=== PATIENT | female | born 1965 | race American Indian/Alaskan Native ===

== ENCOUNTER 2017-01-10 18:33 | Emergency (ER) | payer MEDICAID ==
[~2017-01-10] VITALS: Ht 149.9 cm; Wt 67.6 kg
[2017-01-10] MEDS ORDERED: KETOROLAC 30 MG/1 ML IM ONE (19:00)
[2017-01-10] MEDS ORDERED: KETOROLAC 30 MG/1 ML ONE (19:03)
[2017-01-10 19:35] VITALS: BP 163/117
== END 2017-01-10 20:14 | disposition home or self-care (01) ==
LOC: ED 20:10
DX: I10 Essential (primary) hypertension (principal); G89.11 Acute pain due to trauma; M25.512 Pain in left shoulder
CPT/HCPCS: 73030; 96372; 99284; J1885

== ENCOUNTER 2017-07-12 16:57 | Emergency (ER) | payer MEDICAID ==
[~2017-07-12] VITALS: Ht 149.9 cm; Wt 69.3 kg
[2017-07-12 17:07] VITALS: BP 193/121
[2017-07-12] MEDS ORDERED: AZITHROMYCIN 500 MG TABLET PO ONE (17:30)
[2017-07-12] MEDS ORDERED: CEFTRIAXONE 250 MG IM ONE (17:30)
[2017-07-12] MEDS ORDERED: AZITHROMYCIN 500 MG TABLET ONE (17:33)
[2017-07-12] MEDS ORDERED: CEFTRIAXONE 250 MG ONE (17:33)
[2017-07-12 19:05] LABS: CLUE CELLS NONE SEEN (NONE SEEN); WET PREP WBCS NONE SEEN (FEW)
== END 2017-07-12 18:53 | disposition home or self-care (01) ==
LOC: ED 18:30
DX: A64 Unspecified sexually transmitted disease (principal); I10 Essential (primary) hypertension
CPT/HCPCS: 87210; 87491; 87591; 87808; 96372; 99284; J0696

== ENCOUNTER 2018-12-10 10:09 | Inpatient (IN) | payer MEDICAID ==
[~2018-12-10] VITALS: Ht 149.9 cm; Wt 74.6 kg
[2018-12-10] MEDS ORDERED: LISI1TAB5 PO (10:46)
--- NOTE | 2018-12-10 10:47 | NUR ---
Pt presents to ED with c/o dizziness, nausea, and vomitting, intermittently for "two weeks". Pt is hypertensive in ED room with blood pressure at 206/122, heart rate in 80's. Pt states, "I forgot to take my blood pressure meds this morning." Pt connected to personnel monitor, NIBP cuff, and pulse ox. Both bedrails up for safety measures. Call light within reach. Family at bedside. NADN. No needs expressed. Pt denies cp, n/v at this time. Pt states, "I feel dizzy".
[2018-12-10] MEDS ORDERED: METOPROLOL 1 MG/ML, 5ML ONE (10:52)
[2018-12-10] MEDS ORDERED: METOPROLOL 1 MG/ML, 5ML IVPush ONE (11:30)
[2018-12-10] MEDS ORDERED: ONDANSETRON 2MG/ML, 2ML ONE (11:30)
[2018-12-10] MEDS ORDERED: MORPHINE SULFATE 4 MG/ML, 1ML ONE ×2 (11:30→12:19)
[2018-12-10] MEDS ORDERED: ONDANSETRON 2MG/ML, 2ML IVPush ONE (11:30)
[2018-12-10] MEDS: MORPHINE SULFATE 4 MG/ML, 1ML IVPush PRN ×2 (11:34→12:28)
[2018-12-10 11:41] LABS: BASOPHILS # (AUTO) 0.02 x10^3/uL (0-0.1); BASOPHILS % (AUTO) 0 % (0-1); EOSINOPHILS # (AUTO) 0.11 x10^3/uL (0-0.4); EOSINOPHILS % (AUTO) 2 % (1-7); LYMPHOCYTES # (AUTO) 1.53 x10^3/uL (1-3.4); LYMPHOCYTES % (AUTO) 27 % (22-44); MD NO; MEAN CORPUSCULAR HEMOGLOBIN 32.7 pg (27.0-34.8); MEAN CORPUSCULAR HGB CONC 32.9 g/dL (32.4-35.8); MEAN CORPUSCULAR VOLUME 99.5 fL (80-100); MEAN PLATELET VOLUME 8.8 fL (7.4-10.4); MONOCYTES # (AUTO) 0.42 x10^3/uL (0.2-0.8); MONOCYTES % (AUTO) 7 % (2-9); NEUTROPHILS # (AUTO) 3.65 x10^3/uL (1.8-6.8); NEUTROPHILS % (AUTO) 64 % (42-75); PLATELET COUNT 292 x10^3/uL (130-400); RED BLOOD COUNT 4.42 x10^6/uL (3.82-5.3)
[2018-12-10 11:49] LABS: ALANINE AMINOTRANSFERASE 59 U/L (12-78); ALBUMIN 3.7 g/dL (3.4-5.0); ANION GAP 7 mmol/L (5-15); CALCIUM 9.1 mg/dL (8.5-10.1); CHLORIDE 110 mmol/L (98-107); CREATININE 0.62 mg/dL (0.55-1.02)
[2018-12-10 11:54] LABS: ALKALINE PHOSPHATASE 117 U/L (45-117); BILIRUBIN,TOTAL 0.3 mg/dL (0.2-1.0); TOTAL PROTEIN 7.6 g/dL (6.4-8.2); TROPONIN I 0.046 ng/mL (0.000-0.045)
[2018-12-10] MEDS ORDERED: ENALAPRILAT 1.25 MG/ML, 1ML ONE (12:19)
[2018-12-10] MEDS ORDERED: ENALAPRILAT 1.25 MG/ML, 2ML IV ONE (12:30)
[2018-12-10 12:48] LABS: MICROSCOPIC NOT IND
[2018-12-10 12:50] LABS: CULTURE INDICATED? NO
[2018-12-10] MEDS ORDERED: hydrALAzine 20 MG/ML, 1ML ONE (13:18)
[2018-12-10] MEDS ORDERED: hydrALAzine 20 MG/ML, 1ML IV ONE (13:30)
--- NOTE | 2018-12-10 14:21 | NUR ---
Gave report to JANNETH Guzman. All questions answered. TOMN. Pt ready to transfer to floor from ED.
[2018-12-10 14:53] VITALS: BP 145/87
[2018-12-10] MEDS ORDERED: ASPIRIN 325 MG TABLET ONE (15:05)
--- NOTE | 2018-12-10 15:08 | NUR ---
LATE NOTE ENTRY FOR 1422: Pt transfered to floor from ED and left with all personal belongings.
[2018-12-10] MEDS ORDERED: PROMETHAZINE 25 MG/ML, 1ML IM PRN (15:30)
[2018-12-10] MEDS ORDERED: ACETAMINOPHEN 325 MG TABLET PO PRN (15:30)
[2018-12-10] MEDS ORDERED: ONDANSETRON 2MG/ML, 2ML IVPush PRN (15:30)
[2018-12-10] MEDS ORDERED: NITROGLYCERIN 0.4 MG BOTTLE (25 TABS) SL PRN ×2 (15:30→16:00)
[2018-12-10] MEDS ORDERED: ASPIRIN 325 MG TABLET PO ONE (15:30)
[2018-12-10] MEDS ORDERED: hydrALAzine 20 MG/ML, 1ML IVPush PRN (15:30)
[2018-12-10] MEDS ORDERED: LABETALOL 5MG/ML, 20ML IVPush PRN (15:30)
[2018-12-10] MEDS ORDERED: ONDANSETRON ODT 4 MG PO PRN (15:30)
[2018-12-10 16:15] LABS: AMPHETAMINE SCREEN, URINE Positive (Negative); BARBITURATE SCREEN, URINE Negative (Negative); BENZODIAZEPINE SCREEN, URINE Negative (Negative); CANNABINOID SCREEN, URINE Negative (Negative); COCAINE SCREEN, URINE Negative (Negative); METHADONE SCREEN, URINE Negative (Negative); OPIATE SCREEN, URINE Positive (Negative)
[2018-12-10 16:16] LABS: TROPONIN I 0.063 ng/mL (0.000-0.045)
[2018-12-10 16:37] LABS: D-DIMER 0.28 ug/mlFEU (0.00-0.52); INTERNATIONAL NORMALIZED RATIO 0.95 (0.93-1.1)
[2018-12-10 17:46] LABS: C-REACTIVE PROTEIN, QUANT 0.23 mg/dL (0.02-0.49)
[2018-12-10] MEDS: KETOROLAC 30 MG/1 ML IV PRN (18:23)
[2018-12-10] MEDS: HEPARIN 5,000 UNITS/ML, 1ML SQ SCH ×2 (18:23→23:32)
[2018-12-10] MEDS: ATORVASTATIN 40 MG TABLET PO SCH (20:31)
[2018-12-10 20:34] VITALS: BP 143/86
[2018-12-10 21:39] LABS: TROPONIN I 0.062 ng/mL (0.000-0.045)
[2018-12-11 01:02] VITALS: BP 144/83
[2018-12-11] MEDS: KETOROLAC 30 MG/1 ML IV PRN (02:02)
[2018-12-11 03:21] LABS: BASOPHILS # (AUTO) 0.04 x10^3/uL (0-0.1); BASOPHILS % (AUTO) 1 % (0-1); EOSINOPHILS # (AUTO) 0.19 x10^3/uL (0-0.4); EOSINOPHILS % (AUTO) 4 % (1-7); LYMPHOCYTES # (AUTO) 1.92 x10^3/uL (1-3.4); LYMPHOCYTES % (AUTO) 38 % (22-44); MD NO; MEAN CORPUSCULAR HEMOGLOBIN 33.8 pg (27.0-34.8); MEAN CORPUSCULAR HGB CONC 33.2 g/dL (32.4-35.8); MEAN CORPUSCULAR VOLUME 101.8 fL (80-100); MEAN PLATELET VOLUME 8.4 fL (7.4-10.4); MONOCYTES % (AUTO) 10 % (2-9); NEUTROPHILS # (AUTO) 2.39 x10^3/uL (1.8-6.8); NEUTROPHILS % (AUTO) 48 % (42-75); PLATELET COUNT 277 x10^3/uL (130-400); RED BLOOD COUNT 3.87 x10^6/uL (3.82-5.3); RED CELL DISTRIBUTION WIDTH 14.5 % (9.6-15.2)
[2018-12-11 03:41] LABS: ALBUMIN 3.1 g/dL (3.4-5.0); ANION GAP 7 mmol/L (5-15); CALCIUM 8.8 mg/dL (8.5-10.1); CHLORIDE 110 mmol/L (98-107)
[2018-12-11 03:44] LABS: ALANINE AMINOTRANSFERASE 47 U/L (12-78); ALKALINE PHOSPHATASE 92 U/L (45-117); CREATININE 0.74 mg/dL (0.55-1.02); TOTAL PROTEIN 6.1 g/dL (6.4-8.2); TROPONIN I 0.061 ng/mL (0.000-0.045)
[2018-12-11 03:45] LABS: BILIRUBIN,TOTAL < 0.1 mg/dL (0.2-1.0)
[2018-12-11 06:29] VITALS: BP 157/93
[2018-12-11] MEDS: FOLIC ACID 1 MG TABLET PO SCH (07:51)
[2018-12-11] MEDS: ASPIRIN 81 MG TABLET CHEW PO SCH (07:51)
[2018-12-11] MEDS: HEPARIN 5,000 UNITS/ML, 1ML SQ SCH ×3 (07:51→23:18)
[2018-12-11] MEDS: THIAMINE 100MG TABLET PO SCH (07:51)
[2018-12-11] MEDS ORDERED: LISINOPRIL 20 MG TABLET PO SCH (09:00)
[2018-12-11] MEDS ORDERED: HYDROCHLOROTHIAZIDE 12.5 MG CAPSULE PO SCH (09:00)
[2018-12-11] MEDS: OXYcodone/APAP 5/325MG TABLET PO PRN ×3 (10:16→20:19)
[2018-12-11] MEDS: LISINOPRIL 10 MG TABLET PO SCH (10:17)
[2018-12-11] MEDS: HYDROCHLOROTHIAZIDE 12.5 MG CAPSULE PO SCH (10:17)
[2018-12-11] MEDS: AMLODIPINE 5 MG TABLET PO SCH ×2 (10:17→20:19)
[2018-12-11 13:28] VITALS: BP 136/85
[2018-12-11 13:29] VITALS: BP_SYST 146; BP_SYST 162; BP_DIAS 85; BP_DIAS 99
[2018-12-11] MEDS: MECLIZINE CHEWABLE 25 MG TAB PO SCH (14:47)
[2018-12-11 18:45] VITALS: BP 153/82
[2018-12-11] MEDS: ATORVASTATIN 40 MG TABLET PO SCH (20:19)
[2018-12-12] MEDS: OXYcodone/APAP 5/325MG TABLET PO PRN ×2 (00:26→05:40)
[2018-12-12 01:10] VITALS: BP 165/85
[2018-12-12 05:24] LABS: ALANINE AMINOTRANSFERASE 68 U/L (12-78); ALBUMIN 3.2 g/dL (3.4-5.0); ANION GAP 4 mmol/L (5-15); CALCIUM 8.6 mg/dL (8.5-10.1); CHLORIDE 109 mmol/L (98-107); CREATININE 0.75 mg/dL (0.55-1.02)
[2018-12-12 05:26] LABS: ALKALINE PHOSPHATASE 112 U/L (45-117); BILIRUBIN,TOTAL 0.3 mg/dL (0.2-1.0); TOTAL PROTEIN 6.3 g/dL (6.4-8.2)
[2018-12-12] MEDS: MECLIZINE CHEWABLE 25 MG TAB PO SCH (05:40)
[2018-12-12 06:48] VITALS: BP 148/79
[2018-12-12] MEDS: HEPARIN 5,000 UNITS/ML, 1ML SQ SCH (08:13)
[2018-12-12] MEDS: FOLIC ACID 1 MG TABLET PO SCH (08:15)
[2018-12-12] MEDS: LISINOPRIL 10 MG TABLET PO SCH (08:15)
[2018-12-12] MEDS: HYDROCHLOROTHIAZIDE 12.5 MG CAPSULE PO SCH (08:15)
[2018-12-12] MEDS: ASPIRIN 81 MG TABLET CHEW PO SCH (08:15)
[2018-12-12] MEDS: AMLODIPINE 5 MG TABLET PO SCH (08:15)
[2018-12-12] MEDS: THIAMINE 100MG TABLET PO SCH (08:16)
[2018-12-12] MEDS ORDERED: HYDROCHLOROTHIAZIDE 25 MG TABLET PO SCH (09:00)
[2018-12-12] MEDS ORDERED: LISINOPRIL 20 MG TABLET PO SCH (09:00)
[2018-12-12] MEDS ORDERED: HYDROCHLOROTHIAZIDE 12.5 MG CAPSULE PO ONE (09:30)
[2018-12-12] MEDS ORDERED: LISINOPRIL 10 MG TABLET PO ONE (09:30)
[2018-12-12] MEDS ORDERED: LISI-170 PO (10:55)
[2018-12-12] MEDS ORDERED: ASPI-515 PO (10:55)
[2018-12-12] MEDS ORDERED: HYDR25TA6 PO (10:55)
[2018-12-12] MEDS ORDERED: THIA100T67 PO (10:55)
[2018-12-12] MEDS ORDERED: MECL-85 PO (10:55)
[2018-12-12] MEDS ORDERED: FOLI-17 PO (10:55)
[2018-12-12] MEDS ORDERED: AMLO-150 PO (10:55)
== END 2018-12-12 12:05 | disposition home or self-care (01) | DRG 305 ==
LOC: ED 12:45 → EDIP 13:46 → 5SO 14:42 → DCLOUNGE 12-12 11:50
PROVIDERS: ADMIT Internal Medicine; ATTEND Internal Medicine
DX: I16.1 Hypertensive emergency (principal); I24.8 Other forms of acute ischemic heart disease; F10.129 Alcohol abuse with intoxication, unspecified; F12.90 Cannabis use, unspecified, uncomplicated; H81.10 Benign paroxysmal vertigo, unspecified ear; I10 Essential (primary) hypertension; Z85.42 Personal history of malignant neoplasm of other parts of uterus; Z90.710 Acquired absence of both cervix and uterus; Z91.14 Patient's other noncompliance with medication regimen; Z88.6 Allergy status to analgesic agent; Y90.9 Presence of alcohol in blood, level not specified
CPT/HCPCS: 36415; 70450; 71045; 74176; 80053; 80307; 81003; 82150; 83690; 83735; 84443; 84484; 85025; 85379; 85610; 85651; 85730; 86140; 93005; 93306; G0378; J1644; J1885; J2405; J0360; J2270

== ENCOUNTER 2020-12-26 12:46 | Emergency (ER) | payer MEDICAID ==
[~2020-12-26] VITALS: Ht 149.9 cm; Wt 85.3 kg
[~2020-12-26 12:46] MED LIST: AMLO-150 PO; ASPI-963 PO; FOLI1TAB32 PO; HYDR25TA6 PO; LISI-170 PO; LISI1TAB39 PO; MECL-85 PO; THIA100T67 PO
[2020-12-26 12:55] VITALS: BP 191/117
== END 2020-12-26 14:03 | disposition home or self-care (01) ==
LOC: ED 13:55
DX: K43.2 Incisional hernia without obstruction or gangrene (principal); I10 Essential (primary) hypertension
CPT/HCPCS: 99281